=== PATIENT | female | born 1955 | race African-American/Black ===

== ENCOUNTER 2016-12-03 12:08 | Emergency (ER) | payer OTHER ==
[~2016-12-03] VITALS: Ht 180.3 cm; Wt 83.9 kg
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
[~2016-12-03 12:08] MED LIST: PHENERGAN25 MG PO; VICODIN PO
== END 2016-12-03 15:10 | disposition home or self-care (01) ==
LOC: CED 12:08 → CFTX 12:08
DX: S39.012A Strain of muscle, fascia and tendon of lower back, initial encounter (principal); S80.02XA Contusion of left knee, initial encounter; S80.01XA Contusion of right knee, initial encounter; V43.52XA Car driver injured in collision with other type car in traffic accident, initial encounter
CPT/HCPCS: 72100; 73562; 99284